=== PATIENT | male | born 1965 | race Caucasian/White ===

== ENCOUNTER → 2020-03-27 | Outpatient (CLI) | payer OTHER ==
[~2020-03-27] MED LIST: AMBIEN 10 MG TA10 MG PO; AMBIEN 5 MG TABL5 M1 PO; BUPROPION; CYMBALTA60 MG PO; DEPAKOTE ER500 MG PO; DEPO-TESTO100 MG/1 M IM; ENALAPRIL MALEA10 M2 PO; GINSANA100 M1 PO; GLUCOPHAGE1000 MG PO; GLUCOTROL10 MG PO; HYDROCODON-ACE1 EAC7 PO; HYDROXYCHLOROQ200 M1 PO; IBUPROFEN 600600 M1 PO; LOPRESSOR; MEDROL DOSPAK21 TA1 PO; NORCO 5-325 TA1 EACH PO; OMEPRAZOLE40 MG PO; PERCOCET 5-3251 EACH PO; PERCOCET PO; SEROQUEL XR150 MG PO; TESTIM5 GM TRANSDERM; TOPROL XL100 MG PO; TRAMADOL100 MG PO; TRAZODONE HCL50 MG PO; ZOLOFT50 MG PO; [UNRECOGNIZED DRUG - REMARK]
== END ==
LOC: SJCVC 09:30
PROVIDERS: ATTEND Internal Medicine Cardiovascular Disease
DX: R94.31 Abnormal electrocardiogram [ECG] [EKG] (principal); I44.0 Atrioventricular block, first degree; I49.1 Atrial premature depolarization; I25.10 Atherosclerotic heart disease of native coronary artery without angina pectoris; E78.00 Pure hypercholesterolemia, unspecified; I10 Essential (primary) hypertension; Z79.899 Other long term (current) drug therapy

== ENCOUNTER → 2020-03-31 | Outpatient (CLI) | payer OTHER | LOC: SJCVCIMAG 08:03 | PROVIDERS: ATTEND Internal Medicine Cardiovascular Disease | DX: I07.1 Rheumatic tricuspid insufficiency (principal); I44.0 Atrioventricular block, first degree; I11.9 Hypertensive heart disease without heart failure; I25.10 Atherosclerotic heart disease of native coronary artery without angina pectoris; E78.00 Pure hypercholesterolemia, unspecified; Z79.899 Other long term (current) drug therapy ==

== ENCOUNTER → 2020-04-21 | Outpatient (CLI) | payer OTHER | LOC: LAB 12:04 | PROVIDERS: ATTEND Internal Medicine Cardiovascular Disease | DX: Z01.812 Encounter for preprocedural laboratory examination (principal); Z20.828 Contact with and (suspected) exposure to other viral communicable diseases ==

== ENCOUNTER → 2020-04-23 | Outpatient (CLI) | payer OTHER ==
[~2020-04-23] VITALS: Ht 188 cm; Wt 109.0 kg
[~2020-04-23] MED LIST changes: +OZEMPIC1 MG/0.75 SUBQ; +RITALIN10 MG PO; +ULTRAM 50MG TAB50 MG PO
--- NOTE | ~2020-04-23 | P ---
[facility] [place] [address] PROCEDURE REPORT Name: JASVIR RAND Room #: REG [facility] Diana.#: [id number] Admission: 04/23/20 Attend Phys: Geoffrey Sears MD Discharge: Date of : 61 Report #: [id number] THIS REPORT FOR: cc: AUDI DE LA CRUZ MD,Geoffrey Bourgeois MD, MD ~ CC: Geoffrey DE LA CRUZ SVT ABLATION PREOPERATIVE DIAGNOSIS: Supraventricular tachycardia. POSTOPERATIVE DIAGNOSIS: AV-aparna reentrant tachycardia. PROCEDURES PERFORMED: 1. SVT ablation, CPT code 26901. 2. EP with left atrial pacing and recording, CPT code 20354. 3. Program stimulation pacing after IV drug infusion, CPT code 91247. 4. 3D mapping, CPT code 95259. HISTORY: The patient is a 54-year-old male with history of palpitations and presyncopal and syncopal episodes, who recently wore electroless plater showing frequent episodes of SVT that appears to be consistent with AV aparna reentrant tachycardia. He is here for EP study and ablation. ANESTHESIA: The patient underwent MAC anesthesia with no anesthesia related complications. Of note, the patient did have obstructive sleep apnea and this caused a lot of catheter movement during his deep breathing. Therefore, we placed a nasal trumpet, this did not work and then I recommended that they put an LMA in him, which decreased his high intrathoracic pressures and made the catheter stability better. DESCRIPTION OF PROCEDURE: The patient underwent informed consent. We discussed the details of the procedure including the risks, which include but not limited to bleeding, infection, vascular damage, cardiac perforation, and damage to chefornak conduction system. He understood these risks and is willing to proceed. The patient was brought to EP laboratory in a fasting and sedated state, prepped and draped in a sterile fashion. I obtained access to the right and left femoral veins placing an 8, 7 and 6-Belizean short sheath in the right femoral vein and a 6-Belizean short sheath in left femoral vein. Under fluoroscopy, I placed 3 quadripolar catheters at the HRA, His and RV positions and a decapolar catheter easily into the coronary sinus. Coronary sinus catheter was utilized for left atrial pacing and recording. At baseline, the patient was in sinus rhythm with sinus cycle length of 950 [facility] [address] [place] [address] PROCEDURE REPORT Name: GIORGIJASVIR CONN Room #: REG CLI Rebeka#: [id number] Admission: 04/23/20 Attend Phys: Geoffrey Sears MD Discharge: Date of : 61 Report #: [id number] milliseconds, OH interval 200 milliseconds, QRS duration 110 milliseconds, QT interval 435 milliseconds, AH interval 140 milliseconds, HV interval 41 milliseconds. Next, atrial burst pacing was performed and AV block was noted at 290 milliseconds. Atrial ERP was noted at 310 milliseconds at a [address] cycle length. Next, ventricular pacing was performed and VA block was noted at 440 milliseconds. Ventricular ERP was noted at 370 milliseconds at a [address] cycle length. VA conduction was both midline and decremental. Next, isoproterenol infusion was started at 2 mcg per minute. AV block was noted at 220 milliseconds. Atrial ERP was noted at 210 milliseconds at a [address] cycle length. Double extrastimuli were delivered and the patient would have 3 beat runs of SVT that appeared to be consistent with AV aparna reentrant tachycardia. Ventricular pacing was performed and VA block was noted at 270 milliseconds. I increased the isoproterenol up to 4 mcg per minute. With single atrial extrastimuli, the patient appeared to have single AV aparna echoes and some short runs of SVT, lasting anywhere from 3-5 beats that were earliest at the His region and appeared to be consistent with possible AV aparna reentrant tachycardia. I decreased isoproterenol down to 3 mcg per minute and still we got no sustained arrhythmias, but the short runs of SVT that appeared to be consistent with AVNRT and had a septal VA time of less than 70 milliseconds. Given the findings on his recent electroless plater and the findings on EP study, I decided to perform AV slow pathway modification. Next, I placed an SR0 sheath and a 4-mm SecureNetense observe ablation catheter into the right atrium and I had difficulties finding the slow pathway region. It appeared that he likely had a large right atrium and right ventricle and with his deep breathing when I would find a slow pathway, I would lose it with his deep respirations. This did not improve with placing an LMA. Therefore, I switched over to an Agilis sheath. I was able to then get back to the slow pathway region and maintained stability at this site. I performed 2 ablation lesions, each at 50 bunch and 55 degrees, each with good junctional beats and no heart block. POST-ABLATION TESTING: Post-ablation, the patient went back on isoproterenol and aggressive atrial and ventricular pacing maneuvers were again performed. AV block was 330 milliseconds. Single and atrial extrastimuli were delivered and we could not induce any SVT, nor was he having bursts of the short previous runs of what appeared to be AVNRT. As such, the procedure was concluded. Post-ablation, the patient remained in sinus rhythm with a sinus cycle length of 800 milliseconds, AH interval 165 milliseconds, HV interval 40 milliseconds, QRS duration 99 milliseconds, QT interval 384 milliseconds. As such, all catheters and sheaths were pulled. Hemostasis was obtained. The patient awoke neurologically and hemodynamically intact. No complications. CONCLUSIONS: 1. Successful slow pathway modification. [facility] [address] [place] [address] PROCEDURE REPORT Name: JASVIR RAND Room #: REG Kathryn Ortiz.#: [id number] Admission: 04/23/20 Attend Phys: Geoffrey Sears MD Discharge: Date of : 61 Report #: [id number] 2. Normal SA aparna function. 3. Normal AV aparna function. 4. Normal His-Purkinje function. 5. No other inducible arrhythmias on or off isoproterenol. By: 1323 1614 Geoffrey Sears MD /nt
[2020-04-23 08:29] VITALS: BP 137/90
[2020-04-23 08:35] LABS: ABSOLUTE NEUTROPHILS 2.3 thou/uL (1.4-8.2); BASOPHILS 0.7 % (0.0-2.0); EOSINOPHILS 2.4 % (0.0-3.0); HEMATOCRIT 43.3 % (42.0-52.0); HEMOGLOBIN 14.5 gm/dL (14.0-18.0); MCH 31.2 pg (26.0-34.0); MCHC 33.5 g/dL (28.0-37.0); MCV 93.1 fL (80.0-100.0); MONOCYTES 11.2 % (1.0-8.0); PLATELET COUNT 213 thou/uL (150-400); POLYS 54.7 % (36.0-66.0); RBC 4.65 mil/uL (4.50-6.00); RDW 13.8 % (10.5-14.5); WBC 4.3 thou/uL (4.0-11.0)
[2020-04-23 08:51] LABS: CALCIUM 9.1 mg/dL (8.5-10.1); CREATININE 0.9 mg/dL (0.7-1.3)
[2020-04-23 08:58] LABS: APTT 26.6 Seconds (24.5-32.8); PROTIME 10.4 Seconds (9.3-11.4)
[2020-04-23 08:59] LABS: ALBUMIN 3.5 g/dL (3.4-5.0); TOTAL BILIRUBIN 0.5 mg/dL (0.2-1.0); TOTAL PROTEIN 6.5 g/dL (6.4-8.2)
== END | disposition home or self-care (01) ==
LOC: CATH 06:53
PROVIDERS: ATTEND Internal Medicine Cardiovascular Disease
DX: I47.1 Supraventricular tachycardia (principal); E78.5 Hyperlipidemia, unspecified; R55 Syncope and collapse; E11.9 Type 2 diabetes mellitus without complications; F31.9 Bipolar disorder, unspecified; K21.9 Gastro-esophageal reflux disease without esophagitis; I25.10 Atherosclerotic heart disease of native coronary artery without angina pectoris; M79.7 Fibromyalgia; E66.09 Other obesity due to excess calories; Z98.890 Other specified postprocedural states; Z79.899 Other long term (current) drug therapy; Z79.4 Long term (current) use of insulin; Z82.49 Family history of ischemic heart disease and other diseases of the circulatory system
CPT/HCPCS: 62110; 62900; 70005

== ENCOUNTER → 2020-07-02 | Outpatient (CLI) | payer OTHER | LOC: SJCVC 11:23 | PROVIDERS: ATTEND Internal Medicine Cardiovascular Disease | DX: R94.31 Abnormal electrocardiogram [ECG] [EKG] (principal); I44.0 Atrioventricular block, first degree; I49.1 Atrial premature depolarization; I47.1 Supraventricular tachycardia; I25.10 Atherosclerotic heart disease of native coronary artery without angina pectoris; I10 Essential (primary) hypertension; Z79.899 Other long term (current) drug therapy ==

== ENCOUNTER → 2020-07-07 | Outpatient (CLI) | payer OTHER | LOC: SJCVC 15:15 | PROVIDERS: ATTEND Internal Medicine Cardiovascular Disease | DX: I44.4 Left anterior fascicular block (principal); I44.0 Atrioventricular block, first degree; R94.31 Abnormal electrocardiogram [ECG] [EKG]; I47.1 Supraventricular tachycardia; I10 Essential (primary) hypertension; E78.5 Hyperlipidemia, unspecified; M19.90 Unspecified osteoarthritis, unspecified site; I25.10 Atherosclerotic heart disease of native coronary artery without angina pectoris; E11.9 Type 2 diabetes mellitus without complications; E66.9 Obesity, unspecified; Z82.49 Family history of ischemic heart disease and other diseases of the circulatory system; Z79.899 Other long term (current) drug therapy ==

== ENCOUNTER → 2020-10-27 | Outpatient (CLI) | payer OTHER | LOC: SJCVC 11:57 | PROVIDERS: ATTEND Internal Medicine Cardiovascular Disease | DX: R94.31 Abnormal electrocardiogram [ECG] [EKG] (principal); I44.4 Left anterior fascicular block; I44.0 Atrioventricular block, first degree; I47.1 Supraventricular tachycardia; I10 Essential (primary) hypertension; E11.9 Type 2 diabetes mellitus without complications; E78.5 Hyperlipidemia, unspecified; Z79.899 Other long term (current) drug therapy ==

== ENCOUNTER → 2021-02-16 | Outpatient (CLI) | payer OTHER | LOC: SJCVCIMAG 02-12 10:28 | PROVIDERS: ATTEND Internal Medicine Cardiovascular Disease | DX: R06.09 Other forms of dyspnea (principal); R53.83 Other fatigue; I10 Essential (primary) hypertension ==

== ENCOUNTER → 2021-03-03 | Outpatient (CLI) | payer OTHER | LOC: SJCVCIMAG 08:57 | PROVIDERS: ATTEND Internal Medicine Cardiovascular Disease | DX: I44.0 Atrioventricular block, first degree (principal); I25.10 Atherosclerotic heart disease of native coronary artery without angina pectoris; I49.3 Ventricular premature depolarization; R06.00 Dyspnea, unspecified; I47.1 Supraventricular tachycardia; E78.5 Hyperlipidemia, unspecified; E11.9 Type 2 diabetes mellitus without complications; I10 Essential (primary) hypertension; Z79.899 Other long term (current) drug therapy ==

== ENCOUNTER → 2021-03-11 | Outpatient (CLI) | payer OTHER | LOC: SJCVC 09:45 | PROVIDERS: ATTEND Internal Medicine Cardiovascular Disease | DX: I25.110 Atherosclerotic heart disease of native coronary artery with unstable angina pectoris (principal); I47.1 Supraventricular tachycardia; E78.00 Pure hypercholesterolemia, unspecified; I10 Essential (primary) hypertension; K21.9 Gastro-esophageal reflux disease without esophagitis; M19.90 Unspecified osteoarthritis, unspecified site; E66.9 Obesity, unspecified; G47.33 Obstructive sleep apnea (adult) (pediatric); E11.9 Type 2 diabetes mellitus without complications; Z79.82 Long term (current) use of aspirin; Z79.899 Other long term (current) drug therapy; Z82.49 Family history of ischemic heart disease and other diseases of the circulatory system ==

== ENCOUNTER 2021-03-18 13:23 | Inpatient (IN) | payer OTHER ==
[2021-03-18] VITALS (7 sets, daily range): BP systolic 123–148; BP diastolic 73–98
[~2021-03-18] VITALS: Ht 188 cm; Wt 84.1 kg
[2021-03-18 13:38] LABS: ABSOLUTE NEUTROPHILS 3.1 thou/uL (1.4-8.2); BASOPHILS 0.8 % (0.0-2.0); EOSINOPHILS 1.8 % (0.0-3.0); HEMATOCRIT 45.6 % (42.0-52.0); HEMOGLOBIN 15.8 gm/dL (14.0-18.0); LYMPHOCYTES 27.2 % (24.0-44.0); MCHC 34.7 g/dL (28.0-37.0); MCV 92.1 fL (80.0-100.0); MONOCYTES 8.1 % (1.0-8.0); PLATELET COUNT 220 thou/uL (150-400); POLYS 62.1 % (36.0-66.0); RBC 4.95 mil/uL (4.50-6.00); RDW 13.2 % (10.5-14.5)
[2021-03-18 13:51] LABS: ANION GAP 9 mmol/L (7-16); BUN 23 mg/dL (7-18); CALCIUM 8.9 mg/dL (8.5-10.1); CHLORIDE 103 mmol/L (98-107); CO2 26 mmol/L (21-32); CREATININE 1.1 mg/dL (0.7-1.3); GLUCOSE 155 mg/dL (74-106); POTASSIUM 4.2 mmol/L (3.5-5.1); SODIUM 138 mmol/L (136-145)
[2021-03-18 14:01] LABS: ALBUMIN 3.7 g/dL (3.4-5.0); SGOT 18 U/L (15-37); SGPT 29 U/L (30-65); TOTAL BILIRUBIN 0.5 mg/dL (0.2-1.0); TOTAL PROTEIN 6.8 g/dL (6.4-8.2); TROPONIN-I <0.06 ng/mL (<0.06)
--- NOTE | 2021-03-18 16:57 | NUR ---
55-year-old male presented to the ED on 03-18-21 for chest pain. The patient has a history of CAD, diabetes mellitus, hypertension, hypercholesterolemia, SVT presenting with unstable angina. He describes substernal chest pain associated with lightheadedness and diaphoresis. The patient reports experiencing the symptoms for the past month or so. Cardiology has reviewed findings and discussed with patient and the plan is for cardiac catheterization. The patient states he understands and wishes to proceed. Per ID NOW in the ED as negative and assessment shows that the patient is not vaccinated. Current MD is Dr. John Johnson [phone] and retail service specialist Dr. Shreyas Gross . Per ED assessment and MD documented interactions that patient has been A&O x4. Patient's Tennille is listed as his next of kin at [phone]. As results of cath and plan of care are developed CM will follow for any discharge needs that should arise, as anticipated to discharge home with outpatient follow up.
--- NOTE | 2021-03-18 18:39 | NUR ---
PATIENT ADMIT TO UNIT AT 1710 FROM [facility] CHARRER HELPER. RIGHT GRONE DRESSING INTACTED AND NO BLEEDING. A/O X4. DENIES CHEST PAIN. BED REST TILL 1930. WILL KEEP MONITOR.
[2021-03-19 00:06] VITALS: BP 115/81
[2021-03-19 02:22] LABS: HEMATOCRIT 43.2 % (42.0-52.0); HEMOGLOBIN 14.8 gm/dL (14.0-18.0); MCH 31.8 pg (26.0-34.0); MCHC 34.3 g/dL (28.0-37.0); MCV 92.9 fL (80.0-100.0); RBC 4.65 mil/uL (4.50-6.00); RDW 13.2 % (10.5-14.5); WBC 5.6 thou/uL (4.0-11.0)
[2021-03-19 02:58] LABS: ANION GAP 9 mmol/L (7-16); BUN 21 mg/dL (7-18); CALCIUM 8.3 mg/dL (8.5-10.1); CHLORIDE 104 mmol/L (98-107); CHOLESTEROL 203 mg/dL (<200); CO2 27 mmol/L (21-32); GLUCOSE 110 mg/dL (74-106); HDL CHOLESTEROL 60 mg/dL (>40); LDL CHOLESTEROL 125 mg/dL (<100); POTASSIUM 3.7 mmol/L (3.5-5.1); SODIUM 140 mmol/L (136-145); TC:HDL 3.4 Ratio (Not establshd); TRIGLYCERIDE 90 mg/dL (<150); VLDL 18 mg/dL (<40)
[2021-03-19 02:59] LABS: SERUM ASSESSMENT Clear
--- NOTE | 2021-03-19 05:23 | NUR ---
ASSUME CARE 1900. PT/VITALS STABLE. DENIES ANY PAIN. GOOD ENDURANCE TO ACTIVITY. NO DISTRESS/ADEQUATE REST NOTED THROUGH THE SHIFT. RIGHT GROIN SITE CDI. ASSESSMENT CHRTED. PROGRESSING WELL WITH POC. SR/1D AVB/BBB ON MONITOR. PLAN IS POSSIBLE DICHARGE HOME TODAY. WILL CONTINUE TO MONITOR AND FOLLOW WITH POC
[2021-03-19 05:33] VITALS: BP 117/62
--- NOTE | 2021-03-19 07:09 | EKG ---
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 : 1965 Requested By: Tasha Dominguez Order Number: [id number] MD: Fran Marquez Measurements Intervals [place] Rate: 60 P: -51 OR: 285 QRS: -47 QRSD: 106 T: 39 QT: 407 QTc: 407 Interpretive Statements Sinus or ectopic atrial rhythm Prolonged OR interval Abnormal R-wave progression, early transition Compared to ECG 11/01/2012 16:20:18 Ectopic atrial rhythm now present First degree AV block now present Sinus rhythm no longer present Left-axis deviation no longer present Left ventricular hypertrophy no longer present Poor R-wave progression no longer present Electronically Signed On 03-19-2021 7:08:57 CDT by Fran Marquez [email or web address] <ELECTRONICALLY SIGNED> By: Fran Marquez MD, [facility] 03/19/21 0708 1319 Fran Marquez MD, [facility] /EPI
--- NOTE | 2021-03-19 07:09 | EKG ---
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 : 1965 Requested By: Shreyas Gross Order Number: [id number] MD: Fran Marquez Measurements Intervals [place] Rate: 60 P: -4 SC: 330 QRS: -47 QRSD: 107 T: 44 QT: 425 QTc: 425 Interpretive Statements Sinus rhythm Prolonged SC interval Probable left atrial enlargement Left ventricular hypertrophy Compared to ECG 03/18/2021 13:19:47 Left ventricular hypertrophy now present Ectopic atrial rhythm no longer present Electronically Signed On 03-19-2021 7:09:32 CDT by Fran Marquez [email or web address] <ELECTRONICALLY SIGNED> By: Fran Marquez MD, [facility] 03/19/21 0709 33 33 Fran Marquez MD, FAC /EPI
[2021-03-19] MEDS ORDERED: ADULT LOW DOSE81 MG PO (08:04)
[2021-03-19] MEDS ORDERED: METOPROLOL SUCC25 M1 PO (08:04)
[2021-03-19] MEDS ORDERED: EFFIENT10 MG PO ×2 (08:04)
--- NOTE | 2021-03-19 09:15 | CATHLAB ---
[facility] [address] [place] [address] INVASIVE PROCEDURE REPORT Name: JASVIR RAND Room #: 214-P ADM IN M.R.#: [id number] Admission: 03/18/21 Attend Phys: Blair Gray MD Discharge: Date of : 61 Report #: [id number] THIS REPORT FOR: cc: AUDI DE LA CRUZ MD, OSSAMA MD Park, Jin S. MD ~ APPROVED REPORT Study performed: 03/18/2021 15:16:25 Patient Details Patient Status: ED Room #: The patient is a 55 year-old male Event Personnel Shreyas Gross [employer] Teacher, Naresh Beltrán RN RN, Vanessa Benton RN RN, Nyla Geiger RTR Vinod Mckinney Roberta Monitor Procedures Performed Art Access - R femoral artery* Left Heart Cath w/or w/o Coronaries [id number] [facility] Place w/wo Plasty Addl BR HAYLEY C9601 DESADDL [address]07 Initial Mod Sed Same Phys/QHP Gr5y 156886 72172 Mod Sed Same Phys/QHP Ea 171327 Hemostasis w/ Mynx Indication Dizziness and vertigo, Dyspnea, Unstable angina , Chest pain Risk Factors HypercholesterolemiaPhysical Activity, Coronary Artery DiseaseHypertension, Diabetes Procedure Narrative The Right Groin^ was infiltrated with 1% Lidocaine subcutaneous anesthesia. A PINNACLE 4FR Sheath #[id number] sheath was inserted into the RFA^. Coronary angiography was performed using coronary diagnostic catheters. The right coronary system was accessed and visualized with a JR4 catheter. The left coronary system was accessed and visualized with a JL5 catheter. The patient tolerated the procedure well and there were no complications associated with the procedure. There was no hematoma. Intraoperative Conscious Sedation Sedation start time: 1602 Case end Time: [facility] [address] [place] [address] INVASIVE PROCEDURE REPORT Name: JASVIR RAND Room #: 214-P [facility] IN [facility].#: [id number] Admission: 03/18/21 Attend Phys: Blair Gray MD Discharge: Date of : 61 Report #: [id number] 1650 Fentanyl mcg Versed mg Fluoro Time: 10.20 minutes Dose: DAP 30010.60 cGycm2 3186 mGy Contrast Type and Amount: Omnipaque 190 ml Coronary Angiography The patient's coronary anatomy is right dominant. Diagnostic Cath Left Main The left main artery is a large-caliber vessel, appears angiographically normal. LAD The LAD is a moderate-sized caliber vessel, traverses the anterior wall and terminates at the apex. There is mild disease in the midsegment, 30%. Diagonal 1 This is a moderate-sized caliber vessel with mild disease in the proximal segment. Circumflex The left circumflex artery is a moderate-sized caliber vessel with mild disease in the proximal segment. OM1 This is a small to moderate-sized caliber vessel, with moderate proximal stenosis, 40 to 50%. OM2 This is a small to moderate-sized caliber vessel, patent with no flow-limiting lesions. OM3 This is a small to moderate-sized caliber vessel, patent with no flow-limiting lesions. Right Coronary The RCA is a moderate to large caliber vessel, dominant with no flow-limiting lesions. R PDA This is a moderate-sized caliber vessel, patent with no flow-limiting lesions. RPLV This is a moderate-sized caliber vessel that extends out to the inferoapical segment. There is a severe, discrete stenosis in the proximal segment, 80%. Left Ventriculography Left Ventriculography was not performed. Ejection Fraction was 55-60% based off patient's Nuclear Cardiac Stress Test. An LVEDP was measured and there is no gradient across the outflow tract. Hemodynamics The aortic pressure is 132/66 mmHg with a mean of 44 mmHg. The left ventricular pressure is 133/9 mmHg with a mean of mmHg. The left ventricular end diastolic pressure is 14 mmHg. PCI Technique Lesion [facility] [address] [place] [address] INVASIVE PROCEDURE REPORT Name: JASVIR RAND Room #: 214-P [facility] IN M.R.#: [id number] Admission: 03/18/21 Attend Phys: Blair Gray MD Discharge: Date of : 61 Report #: [id number] Percutaneous coronary intervention was performed on the first right posterior lateral segment. The lesion stenosis prior to intervention was 80% with DEWEY 3 flow. A VISTA 6FR JR 4 #[id number] Guide Catheter was used to engage the ostium. A Luge Wire .014 x 182CM #[id number] Interventional Guidewire was used to cross the lesion. BALLOON DILATION A Balloon catheter Euphora RX 2.25 x 10 #[id number] was inserted and inflated up to 12atm for 20seconds. STENT DEPLOYMENT A drug-eluting stent Euphora RX 2.25 x 10 #[id number] was inserted and inflated up to 14.00atm for 16seconds. Final angiography reveals 0 % stenosis with DEWEY 3 flow. Conclusion 1. Successful insertion of a drug-eluting stent into the right posterior lateral branch. 2. There is mild disease in the LAD and left circumflex artery. 3. There is moderate disease in the first obtuse marginal artery. 4. There is normal LV systolic function. 5. Recommend dual antiplatelet therapy and aggressive risk factor management. <ELECTRONICALLY SIGNED> By: Shreyas Gross MD 03/19/21914 4 4 Shreyas Gross MD /INF
[2021-03-19 10:05] VITALS: BP 117/62
--- NOTE | 2021-03-19 12:22 | NUR ---
PT IS AXOX4, PLEASANT; VSS, AFEBRILE, SR 1AVB ON MONITOR. R GROIN SITE C/D/I, NO HEMATOMA. PT AT THE BEDSIDE. PT TO D/C HOME WITH FOLLOW UP WITH DR MARCOS. DISCHARGE EDUCATION COMPLETED. PT COMMUNICATED UNDERSTANDING. PT D/C WITH VIA PERSONAL VEHICLE. NO CONCERNS AT THIS TIME.
== END 2021-03-19 12:24 | disposition home or self-care (01) | DRG 246 ==
LOC: ER 13:23 → 2N 14:39 → EROBS 14:39 → 2N 17:20
PROVIDERS: Internal Medicine Cardiovascular Disease; Nurse Practitioner; Student in an Organized Health Care Education/Training Program; ADMIT Hospitalist; ATTEND Hospitalist
PROC: B2111ZZ Fluoroscopy of Multiple Coronary Arteries using Low Osmolar Contrast (ICD-10-PCS; principal; 2021-03-18)
PROC: 4A023N7 Measurement of Cardiac Sampling and Pressure, Left Heart, Percutaneous Approach (ICD-10-PCS; principal; 2021-03-18)
PROC: 027034Z Dilation of Coronary Artery, One Artery with Drug-eluting Intraluminal Device, Percutaneous Approach (ICD-10-PCS; principal; 2021-03-18)
DX: I25.110 Atherosclerotic heart disease of native coronary artery with unstable angina pectoris (principal); I50.31 Acute diastolic (congestive) heart failure; I47.1 Supraventricular tachycardia; Z20.822 Contact with and (suspected) exposure to COVID-19; E11.9 Type 2 diabetes mellitus without complications; F31.9 Bipolar disorder, unspecified; K21.9 Gastro-esophageal reflux disease without esophagitis; I25.10 Atherosclerotic heart disease of native coronary artery without angina pectoris; E78.5 Hyperlipidemia, unspecified; Z79.82 Long term (current) use of aspirin; Z79.899 Other long term (current) drug therapy; Z82.49 Family history of ischemic heart disease and other diseases of the circulatory system
CPT/HCPCS: 10081

== ENCOUNTER → 2021-04-02 | Outpatient (CLI) | payer OTHER ==
[~2021-04-02] MED LIST changes: +ADULT LOW DOSE81 MG PO; +EFFIENT10 MG PO; +METOPROLOL SUCC25 M1 PO
== END ==
LOC: SJCVCIMAG 09:37
PROVIDERS: ATTEND Internal Medicine Cardiovascular Disease
DX: I07.1 Rheumatic tricuspid insufficiency (principal); R07.9 Chest pain, unspecified; E78.00 Pure hypercholesterolemia, unspecified; I10 Essential (primary) hypertension; I47.1 Supraventricular tachycardia; Z79.82 Long term (current) use of aspirin; E78.5 Hyperlipidemia, unspecified; E11.9 Type 2 diabetes mellitus without complications; I25.110 Atherosclerotic heart disease of native coronary artery with unstable angina pectoris; Z79.899 Other long term (current) drug therapy

== ENCOUNTER → 2021-07-26 | Outpatient (CLI) | payer OTHER | LOC: SJCVC 12:08 | PROVIDERS: ATTEND Internal Medicine Cardiovascular Disease | DX: E78.00 Pure hypercholesterolemia, unspecified (principal); I25.10 Atherosclerotic heart disease of native coronary artery without angina pectoris; I10 Essential (primary) hypertension; F32.9 Major depressive disorder, single episode, unspecified; E78.5 Hyperlipidemia, unspecified; E11.9 Type 2 diabetes mellitus without complications; G47.33 Obstructive sleep apnea (adult) (pediatric); Z95.818 Presence of other cardiac implants and grafts; Z82.49 Family history of ischemic heart disease and other diseases of the circulatory system; Z79.82 Long term (current) use of aspirin; Z79.899 Other long term (current) drug therapy ==

== ENCOUNTER → 2021-08-03 | Outpatient (CLI) | payer MEDICARE | LOC: SJCVC 10:48 | PROVIDERS: ATTEND Internal Medicine Cardiovascular Disease | DX: R94.31 Abnormal electrocardiogram [ECG] [EKG] (principal); I44.0 Atrioventricular block, first degree; I11.9 Hypertensive heart disease without heart failure; I25.110 Atherosclerotic heart disease of native coronary artery with unstable angina pectoris; E78.00 Pure hypercholesterolemia, unspecified; I47.1 Supraventricular tachycardia; E78.5 Hyperlipidemia, unspecified; G47.33 Obstructive sleep apnea (adult) (pediatric); E11.9 Type 2 diabetes mellitus without complications; F32.A Depression, unspecified; Z82.49 Family history of ischemic heart disease and other diseases of the circulatory system; Z79.82 Long term (current) use of aspirin; Z79.899 Other long term (current) drug therapy ==

== ENCOUNTER → 2021-08-20 | Outpatient (CLI) | payer MEDICARE | LOC: SJCVC 10:26 | PROVIDERS: ATTEND Internal Medicine Cardiovascular Disease | DX: I25.110 Atherosclerotic heart disease of native coronary artery with unstable angina pectoris (principal) ==